=== PATIENT | male | born 2000 | race Two or more races ===

== ENCOUNTER 2025-07-26 08:17 | Emergency (ER) | payer SELFPAY ==
[2025-07-26 08:22] VITALS: PULSE 100; RESP 20; O2SAT 100
[2025-07-26 08:27] VITALS: BMI 28.0
--- NOTE | 2025-07-26 08:36 | XR_ITS ---
Examination: Shoulder,right, 3 views Technique: Shoulder AP internal rotation, AP external rotation, Y view shoulder, 3 views Exam date and time :July 26, 2025 0848 hours INDICATIONS: Right shoulder pain today. FINDINGS: Anterior subcoracoid shoulder dislocation Possible tiny fracture off the bony glenoid fossa 3 mm IMPRESSION: Anterior subcoracoid shoulder dislocation
[2025-07-26 08:38] VITALS: PULSE 80; O2SAT 100
--- NOTE | 2025-07-26 08:38 | XR_ITS ---
Examination: AP chest single view Technique one AP portable semiupright chest single view Date and time: July 26, 2025 0850 hours INDICATIONS: Coughing today. FINDINGS: Normal heart size. The lungs are clear. The osseous structures are intact. IMPRESSION: No active disease
[2025-07-26] MEDS: ONDANSETRON INJ 2 MG/ML INJ 2 ML 4 MG IVP (08:58)
[2025-07-26] MEDS: HYDROmorphone INJ 2 MG/ML VIAL 1 MG IVP (08:59)
[2025-07-26 09:04] VITALS: BP 132/80; PULSE 81; RESP 18; TEMP 36.8; O2SAT 100
[2025-07-26 09:39] LABS: Basophils # (Auto) 0.0 Thou/mm3 (0.0-0.2); Basophils % (Auto) 0 % (0-2.5); Eosinophils # (Auto) 0.3 Thou/mm3 (0.0-0.5); Eosinophils % (Auto) 4 % (0-10); Hematocrit 47.8 % (41.0-53.0); Hemoglobin 17.0 g/dL (13.5-16.0); Immature Granulocytes Auto 0.03 Thou/mm3 (0.00-0.00); Lymphocytes # (Auto) 1.3 Thou/mm3 (1.0-4.8); Lymphocytes % (Auto) 20 % (10-50); Mean Corpuscular HGB Conc 35.6 g/dl (31.0-37.0); Mean Corpuscular Hemoglobin 31.1 pg (25.0-35.0); Mean Corpuscular Volume 87 fL (80-100); Monocytes # (Auto) 0.5 Thou/mm3 (0.0-0.8); Monocytes % (Auto) 8 % (0-12); Neutrophils # (Auto) 4.7 Thou/mm3 (1.8-7.7); Neutrophils % (Auto) 68 % (37-80); Nucleated Red Blood Cell # 0.00 Thou/mm3 (0.00-0.00); Nucleated Red Blood Cell % 0 /100 WBC (0); Platelet Count 170 Thou/mm3 (140-440); RDW Standard Deviation 39.0 fL (35.1-43.9); Red Blood Count 5.47 Miln/mm3 (4.50-5.90); White Blood Count 6.8 Thou/mm3 (3.8-10.6)
--- NOTE | 2025-07-26 09:58 | EDNOTE_ITS ---
ED Extremity Problem RME/HPI General Chief complaint: General Adult/Misc Complain Stated complaint: RIGHT SHOULDER PAIN Time Seen by Provider: 07/26/25 08:30 Arrival date/time: 07/26/25 08:17 Limitations: no limitations RME / HPI RME / HPI Narrative: 25 year old male with history of previous bilateral shoulder dislocation otherwise no other chronic medical hx reported presents to the ED BIBA from home for evaluation of right shoulder pain and dislocation. Patient states this morning was getting out of bed and felt the shoulder pop out of place. Accompanied by severe pain, prompting calling 911. No falls or trauma reported. Related Data Allergies Allergy/AdvReac Type Severity Reaction Status Date / Time nka Allergy Uncoded 07/26/25 08:33 Review of Systems Review of Systems Systems Reviewed: All systems reviewed, normal except as documented Past Medical History Past Medical History CARDIAC: Negative Congestive Heart Failure RESPIRATORY: Negative Chronic Obstructive Pulmonary Disease (COPD) GENITOURINARY: Negative Renal Disease ENDOCRINE: Negative Diabetes Mellitus Type 1 or Diabetes Mellitus Type 2 Social History SMOKING STATUS: Never smoker ED Exam General Limitations: Present no limitations General appearance: Present alert and in no apparent distress Head Head exam: Present atraumatic Eye Eye exam: Present normal appearance, PERRL and EOMI ENT ENT exam: Present normal exam, normal oropharynx and mucous membranes moist Neck Neck exam: Present normal inspection, full ROM and trachea midline Chest Chest inspection: Present normal inspection and symmetric chest wall rise Respiratory Respiratory exam: Present normal lung sounds bilaterally Cardiovascular Cardiovascular exam: Present regular rate, normal rhythm and normal heart sounds Abdominal Exam Abdominal exam: Present soft and normal bowel sounds Extremities Exam Extremities exam: Present full ROM and other (Step off where humerus was palpable 5cm below distal clavicle, holding his right arm in position due to pain. ) Back Exam Back exam: Present normal inspection and full ROM Neurological Exam Neurological exam: Present alert, oriented X3 and CN II-XII intact Psychiatric Psychiatric exam: Present normal affect and normal mood Skin Skin exam: Present warm, dry, intact and normal color Course Quality Measures none Orders Category Date Time Status Cytology Supervisor NOW Care 07/26/25 08:38 Completed Continuous Pulse Oximetry NOW Care 07/26/25 08:38 Completed Referral Respiratory Therapy Stat Cons 07/26/25 08:40 Active XR chest 1V portable Stat Exams 07/26/25 08:38 Completed XR shoulder RT min 2V Stat Exams 07/26/25 08:36 Completed XR shoulder RT min 2V Stat Exams 07/26/25 10:11 Completed CBC Stat Lab 07/26/25 09:10 Completed Comprehensive Metabolic Panel Stat Lab 07/26/25 09:10 Completed Prothrombin Time with INR Stat Lab 07/26/25 09:10 Completed Troponin I Stat Lab 07/26/25 09:10 Completed Etomidate Inj [Amidate Inj] Med 07/26/25 08:39 Discontinued 20 mg IVP X1 ONE HYDROmorphone INJ [Dilaudid Inj] Med 07/26/25 08:36 Discontinued 1 mg IVP X1 ONE Ondansetron Inj [Zofran Inj] Med 07/26/25 08:36 Discontinued 4 mg IVP X1 ONE Oxygen Delivery NOW RT 07/26/25 08:38 Completed Vital Signs Vital signs: Vital Signs Pulse Rate 80 07/26/25 08:38 Pulse Oximetry (%) 100 07/26/25 08:38 Pulse ox is 100% on room air which is adequate. PROCEDURES: Orthopedic Joint Reduction Joint #1: Time Out Performed: Yes Side: Right Joint Reduction Location: shoulder Analgesia: procedural sedation Shoulder Technique Used (if applicable): traction/counter-traction Post-reduction neuro exam: intact Post-reduction vascular: intact Post Reduction X-Ray Obtained: Yes Post Reduction X-Ray Results: reduced Splint Applied: Yes Patient Tolerated Procedure: well and no complications Procedural Sedation Indication: fracture/dislocation reduction ASA: 1 Preparation: quencher operator applied, pulse oximeter, capnometry used, supplemental O2 applied, reversal agents at bedside, suction/airway equipment at bedside and IV secured Patient Tolerated Procedure: well and no complications Complications: none Interventions: oxygen applied Additional Comments: Etomdiate 20mg IVP Dilaudid 1mg IVP Extremity Problem MDM Narrative MDM Narrative:: Ramila Pan am scribing for and in the presence of Dr. Leger. 25 yo male with previous bilateral shoulder dislocations that were treated in [place] presented today for right shoulder dislocation and pain. Shoulder xray showed anterior subcoracoid shoulder dislocation with a 3mm possible chip fracture. The shoulder was reduced and post reduction xray shows anatomic position with no definitive fracture. Patient was advised to follow up with orthopedics. Patient data External records reviewed:: EMS form Clinical information provided by:: patient and EMS Social determinants that could affect healthcare access:: none Patient has the following chronic illnesses:: Previous right shoulder dislocation No chronic medical history reported How is presenting disease/condition affected by chronic disease/condition?: no chronic disease Evaluation data The following diagnostics were reviewed and interpreted by me:: lab results and radiology exam(s) Lab and/or radiology exams considered but not ordered:: None Interpretation Summary: Ordering Physician: Alirio Leger MD Date of Service: 07/26/25 Procedure(s): XR shoulder RT min 2V Accession Number(s): [id number] cc: Alirio Leger MD; Paul Mchugh MD; NO PRIMARY/FAMILY,PHYSICIAN~ Examination: Shoulder,right, 3 views Technique: Shoulder AP internal rotation, AP external rotation, Y view shoulder, 3 views Exam date and time :July 26, 2025 0848 hours INDICATIONS: Right shoulder pain today. FINDINGS: Anterior subcoracoid shoulder dislocation Possible tiny fracture off the bony glenoid fossa 3 mm IMPRESSION: Anterior subcoracoid shoulder dislocation Dictated By: Paul Mchugh MD Signed By: <Electronically signed by Paul Mchugh MD in [place]> 07/26/25 0944 Ordering Physician: Alirio Leger MD Date of Service: 07/26/25 Procedure(s): XR chest 1V portable Accession Number(s): [id number] cc: Alirio Leger MD; Paul Mchugh MD; NO PRIMARY/FAMILY,PHYSICIAN~ Examination: AP chest single view Technique one AP portable semiupright chest single view Date and time: July 26, 2025 0850 hours INDICATIONS: Coughing today. FINDINGS: Normal heart size. The lungs are clear. The osseous structures are intact. IMPRESSION: No active disease Dictated By: Paul Mchugh MD Signed By: <Electronically signed by Paul Mchugh MD in [place]> 07/26/25 0945 Ordering Physician: Alirio Leger MD Date of Service: 07/26/25 Procedure(s): XR shoulder RT min 2V Accession Number(s): [id number] cc: Alirio Leger MD; Paul Mchugh MD; NO PRIMARY/FAMILY,PHYSICIAN~ Examination: Shoulder,left, 2 views Technique: Shoulder AP internal rotation, Y view shoulder, 2 views Exam date and time :July 26, 2025 1022 hours INDICATIONS: Post reduction shoulder dislocation IMPRESSION: Satisfactory reduction shoulder dislocation No fracture depicted IMPRESSION: Satisfactory reduction shoulder dislocation Dictated By: Paul Mchugh MD Signed By: <Electronically signed by Paul Mchugh MD in [place]> 07/26/25 1104 Medications / Prescriptions Medications or Prescriptions considered but not ordered:: None Medication administrations:: Medication Administration History Discontinued Medications Etomidate (Etomidate Inj 2 Mg/Ml Vial 10 Ml) 20 mg IVP X1 ONE Stop: 07/26/25 08:40 Last Admin: 07/26/25 10:08 Dose: 20 mg Documented By: LAYNE Hydromorphone HCl (Hydromorphone Inj 2 Mg/Ml Vial) 1 mg IVP X1 ONE Stop: 07/26/25 08:37 Last Admin: 07/26/25 08:59 Dose: 1 mg Documented By: LAYNE Ondansetron HCl (Ondansetron Inj 2 Mg/Ml Inj 2 Ml) 4 mg IVP X1 ONE; Protocol Stop: 07/26/25 08:37 Last Admin: 07/26/25 08:58 Dose: 4 mg Documented By: LAYNE See above Consultations Consultation(s) initiated? (list below): No Diagnosis Extremity Problem Differential Diagnosis: other (right shoulder fracture, right shoulder dislocation, clavicle fracture ) Most likely diagnosis given after review of the tests above:: Dislocation of shoulder joint s/p shoulder reduction Admission Indicated Admission indicated?: not indicated Admission Request Was there a request for admission?: No Disposition Plan Disposition Plan: Discharge Discharge Attestation Discharge Attestation: The patient and all family members were given an opportunity to ask questions and understood the discharge instructions. Discharge instructions specifically effects, indications for sooner follow up or return to the emergency department, and the expected course of current diagnosis. Patient condition: Stable Critical Care Time Critical Care Time Critical Care Time: Yes Total Critical Care Time (min.): 35 Attestation: The high probability of sudden, clinically significant deterioration in the patient's condition required the highest level of my preparedness to intervene urgently. The services I provided to this patient were to treat and/or prevent clinically significant deterioration. Services included the following: chart data review, reviewing nursing notes and/or old charts, documentation time, healthcare consultant collaboration regarding findings and treatment options, medication orders and management, direct patient care, vital sign assessments and ordering, interpreting and reviewing diagnostic studies and lab tests. Aggregate critical care time includes only time during which I was engaged in work directly related to the patient's care, as described above, whether at bedside or elsewhere in the Emergency Department. It did not include time spent performing other reported procedures or the services of residents, students, nurses or physician assistants. Discharge Plan Plan Patient Disposition: HOME (Self Care) Patient condition on transfer: Stable Prescriptions/Referrals Referrals: No Primary/Family,Physician [Primary Care Provider] - In 1 week Problem List Clinical Impression: Dislocation of shoulder joint Patient/Caregiver Discharge Instructions Other Activity Instructions:: Wear an arm sling on the right arm to protect your shoulder Education Materials: ED Dislocation: Shoulder (Reduced) Additional Instructions: Follow-up with an orthopedic doctor in 3 to 5 days. Take Tylenol 500 mg 2 tablets every 6 hours with Advil 200 mg 2 tablets every 6 hours for pain. Print Language: Argentine Stand Alone Forms: Work/School Release
[2025-07-26 09:59] LABS: INR 1.0 (0.9-1.3); Prothrombin Time 11.1 Seconds (9.0-12.2)
[2025-07-26 10:07] LABS: Alanine Aminotransferase 14 U/L (10-49); Albumin, Serum 4.9 gm/dL (3.5-5.0); Albumin/Globulin Ratio 2.1 (1.2-2.2); Alkaline Phosphatase 70 U/L (46-116); Anion Gap 11 (7-16); Aspartate Amino Transferase 19 U/L (0-34); BUN/Creatinine Ratio 11 Ratio (12-20); Bilirubin,Total 1.7 mg/dL (0.3-1.2); Blood Urea Nitrogen 11 mg/dL (9-23); Calcium 9.9 mg/dL (8.3-10.6); Calcium (Corrected) 9.9 mg/dL (8.5-10.1); Carbon Dioxide 23.6 mMol/L (20.0-31.0); Chloride 106 mMol/L (98-107); Creatinine (Component) 1.0 mg/dL (0.6-1.3); Estimated Creatinine Clearance 121.7 mL/min (>60); Globulin 2.3 gm/dL (2.3-3.5); Glucose 103 mg/dL (74-106); Osmolality,Calculated 280 (275-295); Potassium 3.4 mMol/L (3.4-5.1); Sodium 141 mMol/L (136-145); Total Protein 7.2 gm/dL (5.7-8.2); Troponin I < 0.020 ng/mL (0.0-0.045); eGFR > 60 See Note
[2025-07-26] MEDS: ETOMIDATE INJ 2 MG/ML VIAL 10 ML 20 MG IVP (10:08)
--- NOTE | 2025-07-26 10:11 | XR_ITS ---
Examination: Shoulder,left, 2 views Technique: Shoulder AP internal rotation, Y view shoulder, 2 views Exam date and time :July 26, 2025 1022 hours INDICATIONS: Post reduction shoulder dislocation IMPRESSION: Satisfactory reduction shoulder dislocation No fracture depicted
[2025-07-26 10:16] VITALS: BP 139/78; PULSE 79; RESP 16; TEMP 37; O2SAT 98
[2025-07-26 10:39] VITALS: PULSE 65; RESP 17; O2SAT 98
== END 2025-07-26 12:02 | disposition home or self-care (01) ==
PROVIDERS: Emergency Provider Family Medicine
DX: S43.084A Other dislocation of right shoulder joint, initial encounter (principal); X58.XXXA Exposure to other specified factors, initial encounter
CPT/HCPCS: 23650; 36415; 71045; 73030; 80053; 84484; 85025; 85610; 96374; 96375; 99284; J1171; J2405; J3490